=== PATIENT | female | born 1930 | race Caucasian/White ===

== ENCOUNTER 2018-03-20 10:20 | Inpatient (IN) | payer MEDICARE, BC ==
[2018-03-20 14:58] VITALS: BMI 34.9
--- NOTE | 2018-03-20 17:37 | P.HPIM ---
History of Present Illness H&P Date: 03/20/18 Chief Complaint: Thoracic aortic aneurysm 87-year-old female patient who was admitted to [facility] with diagnosis of acute exacerbation CHF and acute exacerbation COPD; patient was treated with IV diuretic therapy along with IV Solu-Medrol and bronchodilator nebulizer treatments; echocardiogram was done which showed an ejection fraction of 35-40% ; despite therapy patient remained tachycardic with a heart rate of 120s and hypoxemic; CT of the chest was done to rule out PE; CAT scan came back negative for PE but did show thoracic aortic aneurysm of 6 cm; patient is transferred to our facility for vascular surgery evaluation and also pulmonary and cardiology consult for further recommendations Past Medical History Past Medical History: Coronary Artery Disease (CAD), COPD, Hypertension Additional Past Medical History / Comment(s): CHF Smoking Status: Former smoker Medications and Allergies Home Medications Medication Instructions Recorded Confirmed Type Aspirin EC [Ecotrin Low Dose] 81 mg PO DAILY 03/20/18 03/20/18 History Digoxin [Lanoxin] 125 mcg PO DAILY 03/20/18 03/20/18 History Diltiazem Cd [Cardizem Cd] 120 mg PO DAILY 03/20/18 03/20/18 History Docusate [Colace] 100 mg PO DAILY 03/20/18 03/20/18 History Ferrous Sulfate [Feosol] 325 mg PO DAILY 03/20/18 03/20/18 History Furosemide [Lasix] 40 mg PO DAILY 03/20/18 03/20/18 History Metoprolol Tartrate [Lopressor] 50 mg PO DAILY 03/20/18 03/20/18 History Multivitamins, Thera [Multivitamin 1 tab PO DAILY 03/20/18 03/20/18 History (formulary)] Naproxen [Naprosyn] 500 mg PO Q12HR 03/20/18 03/20/18 History Potassium Chloride ER [K-Dur 10] 10 meq PO DAILY 03/20/18 03/20/18 History Allergies Allergy/AdvReac Type Severity Reaction Status Date / Time Penicillins Allergy Unknown Verified 03/20/18 14:04 Sulfa (Sulfonamide Allergy Unknown Verified 03/20/18 14:04 Antibiotics) Physical Exam Vitals: Intake and Output 03/20/18 03/20/18 03/20/18 06:59 14:59 22:59 Output Total 200 Balance -200 Output: Urine 200 Other: # Voids 1 1 Weight 86.6 kg - Constitutional In no acute distress; does speak in short sentences due to shortness of breath General appearance: obese - EENT Eyes: EOMI, PERRLA ENT: hard of hearing, no pharyngeal erythema - Neck Neck: no lymphadenopathy, normal ROM, no thyromegaly Carotids: bilateral: bruit absent - Respiratory Respiratory: bilateral: diminished, rhonchi, wheezing - Cardiovascular Rhythm: regular Heart sounds: normal: S1, S2 - Gastrointestinal General gastrointestinal: normal bowel sounds, no tenderness - Integumentary Integumentary: no cellulitis, no flushed, no rash - Neurologic Neurologic: CNII-XII intact - Musculoskeletal Musculoskeletal: generalized weakness, strength equal bilaterally - Psychiatric Psychiatric: A&O x's 3, appropriate affect, intact judgment & insight Assessment and Plan Assessment: 1. Acute exacerbation systolic CHF - We will admit patient to cardiac telemetry - Continue with IV Lasix 40 mg every 12 hours - We will monitor strict NATHALY's, daily weights, renal function and electrolytes - Patient had an echocardiogram done at the outside facility showing an ejection fraction of 35-40% - Consult cardiology for further evaluation and recommendations for patient and family request 2. Acute exacerbation COPD - IV Solu-Medrol 40 mg every 8 hours - DuoNeb nebulizer treatments 4 times a day; doxycycline 100 mg twice a day - Pulmonary consult for further recommendations per family request 3. Thoracic aortic aneurysm - 6 cm per report given from ER physician - We will consult vascular surgery for further recommendations 4. Dyspnea/hypoxemia; possibly multifactorial; PE has been ruled out 5. Hypertension; continue home dose of Cardizem 120 mg daily along with Lopressor 50 mg daily 6. Obesity; counseling done on weight reduction and lifestyle modification 7. DVT prophylaxis; subcu heparin CODE STATUS; full code Time with Patient: Greater than 30
[2018-03-20 18:25] LABS: Basophils % (A) 0 %; Eosinophils % (A) 1 %; HCT 38.9 % (34.0-46.0); HGB 11.4 gm/dL (11.4-16.0); Hypochromasia Moderate; Lymphocytes # (A) 0.4 k/uL (1.0-4.8); Lymphocytes % (A) 11 %; MCHC 29.4 g/dL (31.0-37.0); MCV 91.9 fL (80.0-100.0); Mean Platelet Volume 6.7; Monocytes # (A) 0.1 k/uL (0-1.0); Monocytes % (A) 4 %; Neutrophils # (A) 3.2 k/uL (1.3-7.7); Neutrophils % (A) 83 %; Platelet Count 170 k/uL (150-450); RBC 4.23 m/uL (3.80-5.40); RDW 14.4 % (11.5-15.5); WBC 3.6 k/uL (3.8-10.6)
[2018-03-20 18:28] LABS: Albumin 3.4 g/dL (3.5-5.0); Total Bilirubin 0.7 mg/dL (0.2-1.3); Total Protein 6.9 g/dL (6.3-8.2)
--- NOTE | 2018-03-20 18:33 | XR ---
EXAMINATION TYPE: XR chest 2V DATE OF EXAM: 03/20/2018 COMPARISON: None HISTORY: Shortness of breath, cough and congestion TECHNIQUE: Frontal and lateral views of the chest are obtained. FINDINGS: There is diffuse osseous demineralization. There is a partial intrathoracic stomach apprec iated. Enlarged cardiac mediastinal silhouette is seen, partially atrophy compatible to rotation. Min imal pulmonary vascular congestion is noted. IMPRESSION: 1. Partial intrathoracic stomach. 2. Mild pulmonary vascular congestion and enlarged cardiomediastinal silhouette. Mild congestive hear t failure should be considered.
[2018-03-20 18:37] LABS: Potassium 5.2 mmol/L (3.5-5.1)
[2018-03-20] MEDS: methylPREDNISolone SOD SUCCI 40 MG/ML 1 ML VIAL IV SCH ×2 (18:44→23:12)
[2018-03-20] MEDS: DOXYCYCLINE 100 MG CAP PO SCH (19:30)
[2018-03-20] MEDS: NAPROXEN 250 MG TAB PO SCH (19:30)
[2018-03-20] MEDS: IPRATROPIUM-ALBUTEROL 3 ML NEB INHALATION SCH (21:40)
[2018-03-21 06:28] LABS: Glucose,Whole Blood 131 mg/dL (75-99)
[2018-03-21] MEDS: IPRATROPIUM-ALBUTEROL 3 ML NEB INHALATION SCH ×4 (09:00→21:09)
--- NOTE | 2018-03-21 09:00 | CONS ---
CONSULTATION This patient has been admitted to [facility]. The patient was transferred from [facility]. She has history of congestive heart failure and acute exacerbation of the COPD. The patient under care of medicine. The patient had a CT scan for PE and found to have a thoracic aortic aneurysm 6 cm. The patient also has some hiatal hernia by x- ray. Patient has been transferred for further care. MEDICAL HISTORY: History of coronary artery disease, COPD, hypertension. PERSONAL HISTORY: Patient is a former smoker. PHYSICAL EXAMINATION: NECK: Supple. No bruit appreciated. Chest a few crackles at the lung bases. ABDOMEN: Soft, nontender. Femoral pulses are present. IMPRESSION: 1. Acute exacerbation of systolic congestive heart failure. 2. Thoracic aortic aneurysm, stable. No evidence of leak. 3. Hypertension. PLAN: At this point, patient has been admitted with medical issues. We will do the outpatient workup and discussed with the patient. Follow with you. Thank you very much for the consultation. JAN / ALEJANDRON: [id number] /
[2018-03-21] MEDS: FERROUS SULFATE 325 MG TAB PO SCH (10:09)
[2018-03-21] MEDS: POTASSIUM CHLORIDE ER 10 MEQ TAB.ER.PRT PO SCH (10:09)
[2018-03-21] MEDS: METOPROLOL TARTRATE 50 MG TAB PO SCH (10:09)
[2018-03-21] MEDS: methylPREDNISolone SOD SUCCI 40 MG/ML 1 ML VIAL IV SCH ×3 (10:10→23:07)
[2018-03-21] MEDS: MULTIVITAMINS, THERA 1 EACH TAB PO SCH (10:10)
[2018-03-21] MEDS: FUROSEMIDE 40 MG TAB PO SCH (10:10)
[2018-03-21] MEDS: DILTIAZEM CD 120 MG CAP.ER.24H PO SCH (10:10)
[2018-03-21] MEDS: DOCUSATE 100 MG CAP PO SCH (10:10)
[2018-03-21] MEDS: DIGOXIN 125 MCG TAB PO SCH (10:10)
[2018-03-21] MEDS: DOXYCYCLINE 100 MG CAP PO SCH ×2 (10:10→20:04)
[2018-03-21] MEDS: NAPROXEN 250 MG TAB PO SCH ×2 (10:10→20:04)
[2018-03-21 12:01] LABS: Glucose,Whole Blood 114 mg/dL (75-99)
[2018-03-21] MEDS: BENZOCAINE/MENTHOL LOZENG 1 EACH LOZENGE MUCOUS MEM PRN (12:15)
--- NOTE | 2018-03-21 12:36 | P.CRDCN ---
History of Present Illness Consult date: 03/21/18 Requesting physician: Valdislav Mccain Reason for Consult (text): Acute exacerbation CHF Chief complaint: shortness of breath, edema History of present illness: This is a pleasant 87-year-old gentleman patient who follows with Dr. Cruz. She is somewhat of a poor historian and most of the HPI, past medical history and review of systems was obtained either from the chart or from the patient's son who is at the bedside. She has a history of COPD, hypertension, she's a former smoker and history of atrial fibrillation for which she is on aspirin 81 mg. Initially presented to [facility] because of worsening lower extremity edema and shortness of breath. She was initiated on IV Lasix and Solu -Medrol. She remained tachycardic and hypoxic with continued shortness of breath. She underwent CT of the chest to rule out PE which showed no evidence of PE but did show a 6.2 cm thoracic aortic aneurysm. She was subsequently transferred here to [facility] for vascular surgery evaluation as well as further evaluation and treatment by both pulmonary and cardiology. She is currently maintaining sinus rhythm with PVCs and PACs. Laboratory values upon presentation here showed a white blood cell count 3600, potassium 5.2, CO2 42, BUN 32, creatinine 0.91. NT proBNP from 03/18/18 was 491 which is only mildly elevated. H&P dictated by primary mentions an echocardiogram was done which revealed an ejection fraction of 35-40%. The report of this is not available to me at this time. Overall, patient is feeling a bit better. She feels she is breathing better and her edema has significantly improved. Past Medical History Past Medical History: Coronary Artery Disease (CAD), COPD, Hypertension Additional Past Medical History / Comment(s): CHF History of Any Multi-Drug Resistant Organisms: None Reported Past Surgical History: No Surgical Hx Reported Past Anesthesia/Blood Transfusion Reactions: No Reported Reaction Smoking Status: Former smoker Medications and Allergies Home Medications Medication Instructions Recorded Confirmed Type Aspirin EC [Ecotrin Low Dose] 81 mg PO DAILY 03/20/18 03/20/18 History Digoxin [Lanoxin] 125 mcg PO DAILY 03/20/18 03/20/18 History Diltiazem Cd [Cardizem Cd] 120 mg PO DAILY 03/20/18 03/20/18 History Docusate [Colace] 100 mg PO DAILY 03/20/18 03/20/18 History Ferrous Sulfate [Feosol] 325 mg PO DAILY 03/20/18 03/20/18 History Furosemide [Lasix] 40 mg PO DAILY 03/20/18 03/20/18 History Metoprolol Tartrate [Lopressor] 50 mg PO DAILY 03/20/18 03/20/18 History Multivitamins, Thera [Multivitamin 1 tab PO DAILY 03/20/18 03/20/18 History (formulary)] Naproxen [Naprosyn] 500 mg PO Q12HR 03/20/18 03/20/18 History Potassium Chloride ER [K-Dur 10] 10 meq PO DAILY 03/20/18 03/20/18 History Allergies Allergy/AdvReac Type Severity Reaction Status Date / Time Penicillins Allergy Unknown Verified 03/20/18 14:04 Sulfa (Sulfonamide Allergy Unknown Verified 03/20/18 14:04 Antibiotics) Physical Exam Vitals: Vital Signs Temp Pulse Pulse Pulse Resp BP Pulse Ox 03/21/18 09:00 76 03/21/18 04:00 97.4 F L 73 21 132/71 93 L 03/21/18 00:00 97.7 F 73 17 108/68 98 03/20/18 21:39 97 03/20/18 20:00 97.4 F L 81 19 111/66 94 L 03/20/18 16:00 98.7 F 83 83 16 138/64 97 Intake and Output 03/20/18 03/21/18 03/21/18 22:59 06:59 14:59 Intake Total 840 480 480 Output Total 500 500 Balance 340 -20 480 Intake: Oral 840 480 480 Output: Urine 500 500 Other: Voiding Method Toilet Toilet # Voids 1 2 Weight 86.4 kg PHYSICAL EXAMINATION: HEENT: Head is atraumatic, normocephalic. Pupils equal, round. Neck is supple. There is no elevated jugular venous pressure. HEART EXAMINATION: Heart sounds irregular, S1 and S2 with a systolic murmur. CHEST EXAMINATION: Lungs diminished air entry bilaterally with faint crackles to bilateral bases. No chest wall tenderness is noted on palpation or with deep breathing. ABDOMEN: Soft, obese, nontender. Bowel sounds are heard. No organomegaly noted. EXTREMITIES: 2+ peripheral pulses with no evidence of peripheral edema and no calf tenderness noted. NEUROLOGIC patient is awake, alert and oriented x2. . Results 03/20/18 17:39 03/20/18 17:39 Cardiac Enzymes 03/20/18 Range/Units 17:39 AST 40 H (14-36) U/L CBC 03/20/18 Range/Units 17:39 WBC 3.6 L (3.8-10.6) k/uL RBC 4.23 (3.80-5.40) m/uL Hgb 11.4 (11.4-16.0) gm/dL Hct 38.9 (34.0-46.0) % Plt Count 170 (150-450) k/uL Comprehensive Metabolic Panel 03/20/18 Range/Units 17:39 Sodium 141 (137-145) mmol/L Potassium 5.2 H (3.5-5.1) mmol/L Chloride 94 L (98-107) mmol/L Carbon Dioxide 42 H* (22-30) mmol/L BUN 32 H (7-17) mg/dL Creatinine 0.91 (0.52-1.04) mg/dL Glucose 172 H (74-99) mg/dL Calcium 9.0 (8.4-10.2) mg/dL AST 40 H (14-36) U/L ALT 26 (9-52) U/L Alkaline Phosphatase 41 (38-126) U/L Total Protein 6.9 (6.3-8.2) g/dL Albumin 3.4 L (3.5-5.0) g/dL Current Medications Generic Name Dose Route Start Last Admin Trade Name Freq PRN Reason Stop Dose Admin Albuterol/Ipratropium 3 ml 03/20/18 20:00 03/21/18 09:00 Duoneb 0.5 Mg-3 Mg/3 Ml Soln INHALATION 3 ml RT-QID KENNA Administration Digoxin 125 mcg 03/21/18 09:00 Lanoxin PO DAILY [facility] Diltiazem HCl 120 mg 03/21/18 09:00 Cardizem Cd PO DAILY [facility] Docusate Sodium 100 mg 03/21/18 09:00 Colace PO DAILY [facility] Doxycycline Monohydrate 100 mg 03/20/18 21:00 03/20/18 19:30 Vibramycin PO 100 mg BID KENNA Administration Ferrous Sulfate 325 mg 03/21/18 09:00 Feosol PO DAILY KENNA Furosemide 40 mg 03/21/18 09:00 Lasix PO DAILY KENNA Methylprednisolone Sodium Succinate 40 mg 03/20/18 17:30 03/20/18 23:12 Solu-Medrol IV 40 mg Q8HR KENNA Administration Metoprolol Tartrate 50 mg 03/21/18 09:00 Lopressor PO DAILY KENNA Multivitamins 1 each 03/21/18 12:00 Theragran PO 1200 KENNA Naproxen 500 mg 03/20/18 21:00 03/20/18 19:30 Naprosyn PO 500 mg Q12HR KENNA Administration Potassium Chloride 10 meq 03/21/18 09:00 K-Dur 10 PO DAILY KENNA Intake and Output 03/20/18 03/21/18 03/21/18 22:59 06:59 14:59 Intake Total 840 480 480 Output Total 500 500 Balance 340 -20 480 Intake: Oral 840 480 480 Output: Urine 500 500 Other: Voiding Method Toilet Toilet # Voids 1 2 Weight 86.4 kg 03/20/18 17:39 03/20/18 17:39 Assessment and Plan Assessment: #1 acute on chronic systolic congestive heart failure, improving #2 6.2 cm thoracic aortic aneurysm #3 acute exacerbation COPD #4 hypertension #5 history of A. fib, currently maintaining sinus rhythm Plan: From Cardiology's perspective, we will obtain 2-D echo results from [facility]. We will change metoprolol tartrate to BID. Further recommendations to follow. TRANSITIONAL CARE LIAISON note has been reviewed, I agree with a documented findings and plan of care. Patient was seen and examined.
--- NOTE | 2018-03-21 12:49 | P.PN ---
Subjective Progress Note Date: 03/21/18 Principal diagnosis: Acute exacerbation systolic CHF Acute exacerbation COPD Thoracic aortic aneurysm 6.2 cm 87-year-old female patient transferred to our facility from [facility] patient was admitted for acute exacerbation CHF and COPD; CT chest was done to rule out PE which showed thoracic aortic aneurysm 6.2 cm; patient is transferred to our facility for higher level of care Objective - Vital Signs Vital signs: Vital Signs Temp 98.2 F 03/21/18 12:00 Pulse 92 03/21/18 12:00 Resp 18 03/21/18 12:00 BP 115/68 03/21/18 12:00 Pulse Ox 92 L 03/21/18 12:00 Intake & Output 03/20/18 03/21/18 03/21/18 18:59 06:59 18:59 Intake Total 360 960 480 Output Total 200 800 Balance 160 160 480 Weight 86.6 kg 86.4 kg Intake: Oral 360 960 480 Output: Urine 200 800 Other: Voiding Method Toilet Toilet # Voids 1 2 - Exam HEENT: Head is atraumatic, normocephalic. Pupils equal, round. Neck is supple. There is no elevated jugular venous pressure. HEART EXAMINATION: Heart sounds irregular, S1 and S2 with a systolic murmur. CHEST EXAMINATION: Lungs diminished air entry bilaterally with faint crackles to bilateral bases. No chest wall tenderness is noted on palpation or with deep breathing. ABDOMEN: Soft, obese, nontender. Bowel sounds are heard. No organomegaly noted. EXTREMITIES: 2+ peripheral pulses with no evidence of peripheral edema and no calf tenderness noted. - Labs CBC & Chem 7: 03/20/18 17:39 03/20/18 17:39 Labs: Abnormal Lab Results - Last 24 Hours (Table) 03/20/18 03/20/18 03/21/18 Range/Units 17:39 17:39 05:59 WBC 3.6 L (3.8-10.6) k/uL MCHC 29.4 L (31.0-37.0) g/dL Lymphocytes # 0.4 L (1.0-4.8) k/uL Potassium 5.2 H (3.5-5.1) mmol/L Chloride 94 L (98-107) mmol/L Carbon Dioxide 42 H* (22-30) mmol/L BUN 32 H (7-17) mg/dL Glucose 172 H (74-99) mg/dL POC Glucose (mg/dL) 131 H (75-99) mg/dL AST 40 H (14-36) U/L Albumin 3.4 L (3.5-5.0) g/dL 03/21/18 Range/Units 11:34 WBC (3.8-10.6) k/uL MCHC (31.0-37.0) g/dL Lymphocytes # (1.0-4.8) k/uL Potassium (3.5-5.1) mmol/L Chloride (98-107) mmol/L Carbon Dioxide (22-30) mmol/L BUN (7-17) mg/dL Glucose (74-99) mg/dL POC Glucose (mg/dL) 114 H (75-99) mg/dL AST (14-36) U/L Albumin (3.5-5.0) g/dL Assessment and Plan Assessment: 1. Acute exacerbation systolic CHF - Cardiology recommendations are noted and appreciated - Patient will continue with current dose of IV Lasix; we will monitor strict NATHALY's, daily weights, renal function and electrolytes - Patient had an echocardiogram done at the outside facility showing an ejection fraction of 35-40%; cardiology is requested echocardiogram report from [facility] 2. Acute exacerbation COPD; pulmonary consultation and recommendations are pending - IV Solu-Medrol 40 mg every 8 hours - DuoNeb nebulizer treatments 4 times a day; doxycycline 100 mg twice a day - Pulmonary consult for further recommendations per family request 3. Thoracic aortic aneurysm; vascular surgery has evaluated patient; aneurysm appears stable with no evidence of leak; vascular surgery is recommending outpatient workup and treatment at this point - 6 cm per report given from ER physician - We will consult vascular surgery for further recommendations 4. Dyspnea/hypoxemia; possibly multifactorial; PE has been ruled out 5. Hypertension; continue home dose of Cardizem 120 mg daily along with Lopressor 50 mg daily 6. Obesity; counseling done on weight reduction and lifestyle modification 7. DVT prophylaxis; subcu heparin CODE STATUS; full code
[2018-03-21] MEDS: INSULIN ASPART (NovoLOG) 100 UNIT/ML VIAL SQ SCH ×3 (14:50→21:05)
--- NOTE | 2018-03-21 16:27 | P.CNPUL ---
History of Present Illness Consult date: 03/21/18 History of present illness: A morbidly obese 87-year-old female patient with known history of COPD and congestion heart failure. She is a former smoker. She is also known to have chronic atrial fibrillation. The patient initially presented to [facility] because of worsening dyspnea cough chest congestion and increased lower extremity edema. She was started on treatment and she was started on IV Lasix and bronchodilators and systemic steroids. She continued to be short of breath. CAT scan of the chest was done and it showed no evidence of any pulmonary embolism. There was a 6.2 cm thoracic aortic aneurysm identified which was an incidental finding and vascular surgery consultation was obtained. The patient is currently being seen for pulmonary consultation in the echocardiogram was done showing an ejection fraction of 35-40%. Her chest x- ray was repeated and shows COPD and thoracic kyphosis and widened mediastinum. No fever. No chills. No night sweats. No pleurisy. No hemoptysis. No leukocytosis. Review of Systems Constitutional: Denies chills, Denies fever Eyes: denies as per HPI, denies blurred vision, denies bulging eye, denies decreased vision, denies diplopia, denies discharge, denies dry eye, denies irritation, denies itching, denies pain, denies photophobia, denies loss of peripheral vision, denies loss of vision, denies tunnel vision/blind spots Ears: bilateral: decreased hearing, deny: ear discharge, earache, tinnitus Ears, nose, mouth and throat: Denies headache, Denies sore throat Cardiovascular: Reports decreased exercise tolerance, Reports dyspnea on exertion, Reports leg edema, Reports shortness of breath Respiratory: Reports cough, Reports dyspnea, Reports wheezing Gastrointestinal: Denies abdominal pain, Denies diarrhea, Denies nausea, Denies vomiting Genitourinary: Reports as per HPI Menstruation: Reports as per HPI Musculoskeletal: Reports as per HPI Musculoskeletal: bilateral: ankle swelling, absent: ankle pain, ankle stiffness Integumentary: Reports as per HPI Neurological: Reports as per HPI Psychiatric: Reports as per HPI Endocrine: Reports as per HPI Hematologic/Lymphatic: Reports as per HPI Past Medical History Past Medical History: Coronary Artery Disease (CAD), COPD, Hypertension Additional Past Medical History / Comment(s): CHF History of Any Multi-Drug Resistant Organisms: None Reported Past Surgical History: No Surgical Hx Reported Past Anesthesia/Blood Transfusion Reactions: No Reported Reaction Smoking Status: Former smoker Medications and Allergies Home Medications Medication Instructions Recorded Confirmed Type Aspirin EC [Ecotrin Low Dose] 81 mg PO DAILY 03/20/18 03/20/18 History Digoxin [Lanoxin] 125 mcg PO DAILY 03/20/18 03/20/18 History Diltiazem Cd [Cardizem Cd] 120 mg PO DAILY 03/20/18 03/20/18 History Docusate [Colace] 100 mg PO DAILY 03/20/18 03/20/18 History Ferrous Sulfate [Feosol] 325 mg PO DAILY 03/20/18 03/20/18 History Furosemide [Lasix] 40 mg PO DAILY 03/20/18 03/20/18 History Metoprolol Tartrate [Lopressor] 50 mg PO DAILY 03/20/18 03/20/18 History Multivitamins, Thera [Multivitamin 1 tab PO DAILY 03/20/18 03/20/18 History (formulary)] Naproxen [Naprosyn] 500 mg PO Q12HR 03/20/18 03/20/18 History Potassium Chloride ER [K-Dur 10] 10 meq PO DAILY 03/20/18 03/20/18 History Allergies Allergy/AdvReac Type Severity Reaction Status Date / Time Penicillins Allergy Unknown Verified 03/20/18 14:04 Sulfa (Sulfonamide Allergy Unknown Verified 03/20/18 14:04 Antibiotics) Physical Exam Vitals: Vital Signs Temp Pulse Pulse Pulse Resp BP Pulse Ox 03/21/18 12:57 72 03/21/18 12:41 72 03/21/18 12:00 98.2 F 92 18 115/68 92 L 03/21/18 09:14 80 03/21/18 09:00 76 03/21/18 08:00 98.7 F 92 73 18 114/68 92 L 03/21/18 04:00 97.4 F L 73 21 132/71 93 L 03/21/18 00:00 97.7 F 73 17 108/68 98 03/20/18 21:39 97 03/20/18 20:00 97.4 F L 81 19 111/66 94 L Intake and Output 03/21/18 03/21/18 03/21/18 06:59 14:59 22:59 Intake Total 480 840 Output Total 500 Balance -20 840 Intake: Oral 480 840 Output: Urine 500 Other: Voiding Method Toilet Toilet # Voids 2 3 Weight 86.4 kg PHYSICAL EXAMINATION: Gen. appearance, comfortable not in acute distress she is a morbidly obese female patient HEENT: Head is atraumatic, normocephalic. Pupils equal, round. Neck is supple. There is elevated jugular venous pressure. HEART EXAMINATION: Heart sounds irregular, S1 and S2 with a systolic murmur. CHEST EXAMINATION: Lungs diminished air entry bilaterally with faint crackles to bilateral bases. There is prolongation of expiratory phase of breathing and scattered expiratory wheezes throughout lung feeds bilaterally. There thoracic cage is also somewhat kyphotic ABDOMEN: Soft, obese, nontender. Bowel sounds are heard. No organomegaly noted. EXTREMITIES: 2+ peripheral pulses with trace peripheral edema and no calf tenderness noted. NEUROLOGIC patient is awake, alert and oriented x2. Examination of the skin revealed no evidence of significant rashes, suspicious appearing nevi or other concerning lesions. Results - Laboratory Findings CBC and BMP: 03/20/18 17:39 03/20/18 17:39 Abnormal lab findings: Abnormal Labs 03/20/18 03/20/18 03/21/18 17:39 17:39 05:59 WBC 3.6 L MCHC 29.4 L Lymphocytes # 0.4 L Potassium 5.2 H Chloride 94 L Carbon Dioxide 42 H* BUN 32 H Glucose 172 H POC Glucose (mg/dL) 131 H AST 40 H Albumin 3.4 L 03/21/18 11:34 WBC MCHC Lymphocytes # Potassium Chloride Carbon Dioxide BUN Glucose POC Glucose (mg/dL) 114 H AST Albumin - Diagnostic Findings Chest x-ray: image reviewed Assessment and Plan Plan: Assessment 1 acute COPD exacerbation/tracheobronchitis 2 CHF with impaired left ventricular ejection fraction of 35% 3 shortness of breath secondary to above. Predominant secondary COPD exacerbation with a mild component of CHF in addition 4 chronic hypoxic respiratory failure 5 chronic hypercapnic respiratory failure which seems to be compensated and the patient underlying metabolic alkalosis 6 obesity 7 thoracic aortic aneurysm 8 chronic atrial fibrillation 9 hypertension Plan We will review the CAT scan of the chest findings regarding the thoracic aortic aneurysm. We'll consult vascular surgery. Continue optimization of CHF and COPD. The patient will be placed on a combination of bronchodilators and systemic steroids. The patient is also on oral Lasix. We'll consult cardiology. We'll continue to follow.
[2018-03-21 17:26] LABS: Glucose,Whole Blood 180 mg/dL (75-99)
[2018-03-21 20:52] LABS: Glucose,Whole Blood 121 mg/dL (75-99)
[2018-03-22 06:18] LABS: Glucose,Whole Blood 147 mg/dL (75-99)
[2018-03-22] MEDS: INSULIN ASPART (NovoLOG) 100 UNIT/ML VIAL SQ SCH ×4 (06:30→20:52)
[2018-03-22 06:34] LABS: Basophils % (A) 0 %; Eosinophils % (A) 0 %; HCT 40.3 % (34.0-46.0); HGB 12.1 gm/dL (11.4-16.0); Hypochromasia Moderate; Lymphocytes # (A) 0.5 k/uL (1.0-4.8); Lymphocytes % (A) 4 %; MCH 27.6 pg (25.0-35.0); MCV 92.1 fL (80.0-100.0); Mean Platelet Volume 7.2; Monocytes # (A) 0.3 k/uL (0-1.0); Monocytes % (A) 3 %; Neutrophils # (A) 11.7 k/uL (1.3-7.7); Neutrophils % (A) 93 %; Platelet Count 221 k/uL (150-450); RBC 4.37 m/uL (3.80-5.40); RDW 14.4 % (11.5-15.5); WBC 12.6 k/uL (3.8-10.6)
[2018-03-22 06:51] LABS: Calcium 9.6 mg/dL (8.4-10.2); Potassium 4.9 mmol/L (3.5-5.1)
[2018-03-22] MEDS: IPRATROPIUM-ALBUTEROL 3 ML NEB INHALATION SCH ×4 (07:51→19:53)
[2018-03-22] MEDS: methylPREDNISolone SOD SUCCI 40 MG/ML 1 ML VIAL IV SCH ×2 (09:09→17:40)
[2018-03-22] MEDS: DOCUSATE 100 MG CAP PO SCH (09:09)
[2018-03-22] MEDS: FERROUS SULFATE 325 MG TAB PO SCH (09:10)
[2018-03-22] MEDS: POTASSIUM CHLORIDE ER 10 MEQ TAB.ER.PRT PO SCH (09:10)
[2018-03-22] MEDS: NAPROXEN 250 MG TAB PO SCH ×2 (09:10→20:51)
[2018-03-22] MEDS: DIGOXIN 125 MCG TAB PO SCH (09:10)
[2018-03-22] MEDS: DOXYCYCLINE 100 MG CAP PO SCH ×2 (09:10→20:51)
[2018-03-22] MEDS: FUROSEMIDE 40 MG TAB PO SCH ×2 (09:10→17:40)
[2018-03-22] MEDS: METOPROLOL TARTRATE 50 MG TAB PO SCH (09:10)
[2018-03-22] MEDS: DILTIAZEM CD 120 MG CAP.ER.24H PO SCH (09:10)
[2018-03-22] MEDS: BENZOCAINE/MENTHOL LOZENG 1 EACH LOZENGE MUCOUS MEM PRN (11:00)
[2018-03-22 11:26] LABS: Glucose,Whole Blood 106 mg/dL (75-99)
[2018-03-22] MEDS: MULTIVITAMINS, THERA 1 EACH TAB PO SCH (12:26)
--- NOTE | 2018-03-22 13:54 | P.PN ---
Subjective Progress Note Date: 03/22/18 Principal diagnosis: Acute COPD exacerbation, tracheobronchitis, acute congestive heart failure with systolic dysfunction A morbidly obese 87-year-old female patient with known history of COPD and congestion heart failure. She is a former smoker. She is also known to have chronic atrial fibrillation. The patient initially presented to [facility] because of worsening dyspnea cough chest congestion and increased lower extremity edema. She was started on treatment and she was started on IV Lasix and bronchodilators and systemic steroids. She continued to be short of breath. CAT scan of the chest was done and it showed no evidence of any pulmonary embolism. There was a 6.2 cm thoracic aortic aneurysm identified which was an incidental finding and vascular surgery consultation was obtained. The patient is currently being seen for pulmonary consultation in the echocardiogram was done showing an ejection fraction of 35-40%. Her chest x- ray was repeated and shows COPD and thoracic kyphosis and widened mediastinum. No fever. No chills. No night sweats. No pleurisy. No hemoptysis. No leukocytosis. On 03/22/2018 patient seen in follow-up on selective care unit, she is awake and alert, in no acute distress, sitting up in the recliner, currently on 4 L per nasal cannula, and her pulse ox is 92%, patient normally wears 2 L of oxygen at home. Lung sounds are quite congested, diffuse rhonchi throughout the lung bliss, patient is bringing up some white colored sputum at times. She remains on empiric antibiotics in the form of doxycycline, she is on oral Lasix, and steroids. No fever or chills. No complaints of chest pain. Initial chest x-ray taken on admission with mild pulmonary vascular congestion, consistent with congestive heart failure. Today's labs have been reviewed, white blood cell count is 12.6, hemoglobin is 12.1, sodium is 144, potassium is 4.9, chloride is 94, CO2 is 44, B1 is 38 and creatinine 0.9. Patient is been ambulating in the room, and tolerating activity fairly well. She is requesting to go home. However she still quite congested and wheezy. Objective - Vital Signs Vital signs: Vital Signs Temp 97.7 F 03/22/18 08:00 Pulse 74 03/22/18 12:45 Resp 18 03/22/18 04:00 BP 114/63 03/22/18 08:00 Pulse Ox 92 L 03/22/18 08:00 Intake & Output 03/21/18 03/22/18 03/22/18 18:59 06:59 18:59 Intake Total 840 480 Output Total 200 Balance 840 -200 480 Weight 86.8 kg Intake: Oral 840 480 Output: Urine 200 Other: Voiding Method Toilet Toilet # Voids 3 1 - Exam GENERAL EXAM: Alert, active, comfortable in no apparent distress. HEAD: Normocephalic/atraumatic. EYES: Normal reaction of pupils, equal size. Conjunctiva pink, sclera white. NOSE: Clear with pink turbinates. THROAT: No erythema or exudates. NECK: No masses, no JVD, no thyroid enlargement, no adenopathy. CHEST: No chest wall deformity. Symmetrical expansion. LUNGS: Equal air entry with diffuse rhonchi, and end expiratory wheezes CVS: Regular rate and rhythm, normal S1 and S2, no gallops, no murmurs, no rubs ABDOMEN: Soft, nontender. No hepatosplenomegaly, normal bowel sounds, no guarding or rigidity. EXTREMITIES: No clubbing, no edema, no cyanosis, 2+ pulses and upper and lower extremities. MUSCULOSKELETAL: Muscle strength and tone normal. SPINE: No scoliosis or deformity SKIN: No rashes CENTRAL NERVOUS SYSTEM: Alert and oriented -3. No focal deficits, tone is normal in all 4 extremities. PSYCHIATRIC: Alert and oriented -3. Appropriate affect. Intact judgment and insight. - Labs CBC & Chem 7: 03/22/18 05:51 03/22/18 05:51 Labs: Abnormal Lab Results - Last 24 Hours (Table) 03/21/18 03/21/18 03/22/18 Range/Units 16:14 20:50 05:51 WBC 12.6 H (3.8-10.6) k/uL MCHC 30.0 L (31.0-37.0) g/dL Neutrophils # 11.7 H (1.3-7.7) k/uL Lymphocytes # 0.5 L (1.0-4.8) k/uL Chloride (98-107) mmol/L Carbon Dioxide (22-30) mmol/L BUN (7-17) mg/dL Glucose (74-99) mg/dL POC Glucose (mg/dL) 180 H 121 H (75-99) mg/dL 03/22/18 03/22/18 03/22/18 Range/Units 05:51 06:10 11:25 WBC (3.8-10.6) k/uL MCHC (31.0-37.0) g/dL Neutrophils # (1.3-7.7) k/uL Lymphocytes # (1.0-4.8) k/uL Chloride 94 L (98-107) mmol/L Carbon Dioxide 44 H* (22-30) mmol/L BUN 38 H (7-17) mg/dL Glucose 134 H (74-99) mg/dL POC Glucose (mg/dL) 147 H 106 H (75-99) mg/dL Assessment and Plan Plan: 1 acute COPD exacerbation/tracheobronchitis 2 CHF with impaired left ventricular ejection fraction of 35% 3 shortness of breath secondary to above. Predominant secondary COPD exacerbation with a mild component of CHF in addition 4 chronic hypoxic respiratory failure 5 chronic hypercapnic respiratory failure which seems to be compensated and the patient underlying metabolic alkalosis 6 obesity 7 thoracic aortic aneurysm 8 chronic atrial fibrillation 9 hypertension Plan: Continue current treatment, continue IV steroids, oral Lasix, cardiology has been consulted. She is still quite congested on today's exam. Tinea nebulized bronchodilators and oral antibiotics. Increase activity as tolerated. Vascular surgery consultation is pending in regards to the 6.2 cm thoracic aortic aneurysm. We'll continue to follow I performed a history & physical examination of the patient and discussed their management with my nurse practitioner, Kandy Martin. I reviewed the nurse practitioner's note and agree with the documented findings and plan of care. Lung sounds are positive diffuse rhonchi. The findings and the impression was discussed with the patient. I attest to the documentation by the nurse practitioner. Time with Patient: Less than 30
--- NOTE | 2018-03-22 14:58 | P.PN ---
Subjective Progress Note Date: 03/22/18 This is a pleasant 87-year-old gentleman patient who follows with Dr. Cruz. She is somewhat of a poor historian and most of the HPI, past medical history and review of systems was obtained either from the chart or from the patient's son who is at the bedside. She has a history of COPD, hypertension, she's a former smoker and history of atrial fibrillation for which she is on aspirin 81 mg. Initially presented to [facility] because of worsening lower extremity edema and shortness of breath. She was initiated on IV Lasix and Solu -Medrol. She was seen and examined today, overall is feeling well. The patient during a possible transferred to [facility] today. Continues to have productive cough with scattered rhonchi. On by mouth Lasix. Objective - Vital Signs Vital signs: Vital Signs Temp 97.7 F 03/22/18 08:00 Pulse 74 03/22/18 12:45 Resp 18 03/22/18 04:00 BP 114/63 03/22/18 08:00 Pulse Ox 92 L 03/22/18 08:00 Intake & Output 03/21/18 03/22/18 03/22/18 18:59 06:59 18:59 Intake Total 840 480 Output Total 200 Balance 840 -200 480 Weight 86.8 kg 86.8 kg Intake: Oral 840 480 Output: Urine 200 Other: Voiding Method Toilet Toilet # Voids 3 1 - Exam PHYSICAL EXAMINATION: HEENT: Head is atraumatic, normocephalic. Pupils equal, round. Neck is supple. There is no elevated jugular venous pressure. HEART EXAMINATION: Heart sounds irregular, S1 and S2 with a systolic murmur. CHEST EXAMINATION: Lungs diminished air entry bilaterally with faint crackles to bilateral bases. No chest wall tenderness is noted on palpation or with deep breathing. ABDOMEN: Soft, obese, nontender. Bowel sounds are heard. No organomegaly noted. EXTREMITIES: 2+ peripheral pulses with no evidence of peripheral edema and no calf tenderness noted. NEUROLOGIC patient is awake, alert and oriented x2. . - Labs CBC & Chem 7: 03/22/18 05:51 03/22/18 05:51 Labs: Abnormal Lab Results - Last 24 Hours (Table) 03/21/18 03/21/18 03/22/18 Range/Units 16:14 20:50 05:51 WBC 12.6 H (3.8-10.6) k/uL MCHC 30.0 L (31.0-37.0) g/dL Neutrophils # 11.7 H (1.3-7.7) k/uL Lymphocytes # 0.5 L (1.0-4.8) k/uL Chloride (98-107) mmol/L Carbon Dioxide (22-30) mmol/L BUN (7-17) mg/dL Glucose (74-99) mg/dL POC Glucose (mg/dL) 180 H 121 H (75-99) mg/dL 03/22/18 03/22/18 03/22/18 Range/Units 05:51 06:10 11:25 WBC (3.8-10.6) k/uL MCHC (31.0-37.0) g/dL Neutrophils # (1.3-7.7) k/uL Lymphocytes # (1.0-4.8) k/uL Chloride 94 L (98-107) mmol/L Carbon Dioxide 44 H* (22-30) mmol/L BUN 38 H (7-17) mg/dL Glucose 134 H (74-99) mg/dL POC Glucose (mg/dL) 147 H 106 H (75-99) mg/dL Assessment and Plan Plan: Assessment: #1 acute on chronic systolic congestive heart failure, improving #2 6.2 cm thoracic aortic aneurysm #3 acute exacerbation COPD #4 hypertension #5 history of A. fib, currently maintaining sinus rhythm Plan From cardiology's perspective, we'll continue the patient on her current medications. She may be transferred to ECF once cleared by primary. DNP note has been reviewed, I agree with a documented findings and plan of care. Patient was seen and examined.
[2018-03-22 16:48] LABS: Glucose,Whole Blood 142 mg/dL (75-99)
[2018-03-22 20:46] LABS: Glucose,Whole Blood 144 mg/dL (75-99)
[2018-03-23] MEDS: methylPREDNISolone SOD SUCCI 40 MG/ML 1 ML VIAL IV SCH ×2 (00:19→08:40)
[2018-03-23] MEDS: IPRATROPIUM-ALBUTEROL 3 ML NEB INHALATION SCH (07:40)
[2018-03-23 07:59] VITALS: BP 105/64; RESP 20; TEMP 97.6
[2018-03-23 08:03] LABS: Glucose,Whole Blood 114 mg/dL (75-99)
[2018-03-23] MEDS: NAPROXEN 250 MG TAB PO SCH (08:40)
[2018-03-23] MEDS: DOCUSATE 100 MG CAP PO SCH (08:40)
[2018-03-23] MEDS: METOPROLOL TARTRATE 50 MG TAB PO SCH (08:40)
[2018-03-23] MEDS: FERROUS SULFATE 325 MG TAB PO SCH (08:40)
[2018-03-23] MEDS: MULTIVITAMINS, THERA 1 EACH TAB PO SCH (08:41)
[2018-03-23] MEDS: DIGOXIN 125 MCG TAB PO SCH (08:41)
[2018-03-23] MEDS: DOXYCYCLINE 100 MG CAP PO SCH (08:41)
[2018-03-23] MEDS: POTASSIUM CHLORIDE ER 10 MEQ TAB.ER.PRT PO SCH (08:41)
[2018-03-23] MEDS: FUROSEMIDE 40 MG TAB PO SCH (08:42)
[2018-03-23] MEDS: INSULIN ASPART (NovoLOG) 100 UNIT/ML VIAL SQ SCH (08:42)
[2018-03-23] MEDS: DILTIAZEM CD 120 MG CAP.ER.24H PO SCH (09:10)
[2018-03-23 10:12] VITALS: PULSE 99
--- NOTE | 2018-03-23 10:44 | P.PN ---
Subjective Progress Note Date: 03/22/18 Interval history: 87-year-old female patient transferred to our facility from [facility] patient was admitted for acute exacerbation CHF and COPD; CT chest was done to rule out PE which showed thoracic aortic aneurysm 6.2 cm; patient is transferred to our facility for higher level of care. 03/22/2018 echo report from [place] being obtained, currently unavailable; reported as 35-40%. Continues on doxycycline, oral Lasix, steroids Patient states wears 2-3 L at home. Remains congested, with clear sputum production. Denies chest pain, palpitations or increasing shortness of breath. Objective - Vital Signs Vital signs: Vital Signs Temp 97.7 F 03/22/18 08:00 Pulse 80 03/22/18 20:15 Resp 18 03/22/18 04:00 BP 118/58 03/22/18 16:00 Pulse Ox 93 L 03/22/18 16:00 Intake & Output 03/22/18 03/22/18 03/23/18 06:59 18:59 06:59 Intake Total 780 Output Total 200 Balance -200 780 Weight 86.8 kg 86.8 kg Intake: Oral 780 Output: Urine 200 Other: Voiding Method Toilet # Voids 1 - Exam GENERAL: Sitting up in chair, in alert and oriented 3, no acute distress HEENT: Head is atraumatic, normocephalic. Pupils equal, round. Neck is supple. There is no elevated jugular venous pressure. Oral mucosa moist HEART EXAMINATION: Heart sounds irregular, S1 and S2 with a systolic murmur. CHEST EXAMINATION: Lungs congested, diminished with diffuse rhonchi, expiratory wheezing ABDOMEN: Soft, obese, nontender. Bowel sounds are heard. No organomegaly noted. EXTREMITIES: 2+ peripheral pulses with no evidence of peripheral edema and no calf tenderness noted. SKIN: No rashes - Labs CBC & Chem 7: 03/22/18 05:51 03/22/18 05:51 Labs: Abnormal Lab Results - Last 24 Hours (Table) 03/21/18 03/22/18 03/22/18 Range/Units 20:50 05:51 05:51 WBC 12.6 H (3.8-10.6) k/uL MCHC 30.0 L (31.0-37.0) g/dL Neutrophils # 11.7 H (1.3-7.7) k/uL Lymphocytes # 0.5 L (1.0-4.8) k/uL Chloride 94 L (98-107) mmol/L Carbon Dioxide 44 H* (22-30) mmol/L BUN 38 H (7-17) mg/dL Glucose 134 H (74-99) mg/dL POC Glucose (mg/dL) 121 H (75-99) mg/dL 03/22/18 03/22/18 03/22/18 Range/Units 06:10 11:25 16:43 WBC (3.8-10.6) k/uL MCHC (31.0-37.0) g/dL Neutrophils # (1.3-7.7) k/uL Lymphocytes # (1.0-4.8) k/uL Chloride (98-107) mmol/L Carbon Dioxide (22-30) mmol/L BUN (7-17) mg/dL Glucose (74-99) mg/dL POC Glucose (mg/dL) 147 H 106 H 142 H (75-99) mg/dL 03/22/18 Range/Units 20:45 WBC (3.8-10.6) k/uL MCHC (31.0-37.0) g/dL Neutrophils # (1.3-7.7) k/uL Lymphocytes # (1.0-4.8) k/uL Chloride (98-107) mmol/L Carbon Dioxide (22-30) mmol/L BUN (7-17) mg/dL Glucose (74-99) mg/dL POC Glucose (mg/dL) 144 H (75-99) mg/dL Assessment and Plan Assessment: -Acute exacerbation CHF, systolic dysfunction, EF 35-40% -Acute exacerbation COPD -Acute on chronic hypoxic respiratory failure , wears 3-3.5 L nasal cannula O2 at home -PE ruled out -Hypertension -Morbid Obesity, BMI 35.3 -Thoracic aortic aneurysm,6.2cm, further workup outpatient with Dr. Hewitt -Chronic atrial fibrillation Plan: Continue on current medication regime ,monitoring and symptomatic treatment. Maintain nebulized bronchodilators, Vibramycin, Lasix. Discharge planning in progress pending pulmonary clearance. Aggressive pulmonary toileting. Increase ambulation as tolerated. The impression and plan of care has been dictated as directed. : I performed a history and examination of this patient, discussed the same with the dictator. I agree with the dictator's note ,documented as a scribe. Any additional findings or plans will be noted.
[2018-03-24] MEDS ORDERED: METOPROLOL TARTRATE 25 MG TAB PO SCH (09:00)
--- NOTE | 2018-03-25 18:13 | P.DS ---
Providers Date of admission: 03/20/18 13:20 Expected date of discharge: 03/23/18 Attending physician: MD Dr. Martin Arroyo Consults: 03/20/18 16:36 Consult Physician Routine Consulting Provider: Mitchell Hewitt Consult Reason/Comments: Thoracic arotic aneurysm Do you want consulting provider notified?: Yes 03/20/18 17:31 Consult Physician Routine Consulting Provider: Christian Sanders Consult Reason/Comments: Acute exacerbation CHF Do you want consulting provider notified?: Yes 03/20/18 17:32 Consult Physician Routine Consulting Provider: Natty Orozco Consult Reason/Comments: Dyspnea/COPD Do you want consulting provider notified?: Yes Primary care physician: Stated None Hospital Course: Final Diagnoses: -Acute exacerbation CHF, systolic dysfunction, EF 35-40% -Acute exacerbation COPD -Acute on chronic hypoxic respiratory failure , wears 3-3.5 L nasal cannula O2 at home -PE ruled out -Hypertension -Morbid Obesity, BMI 35.3 -Thoracic aortic aneurysm,6.2cm, further workup outpatient with Dr. Hewitt -Chronic atrial fibrillation Hospital course:87-year-old female patient transferred to our facility from [facility] patient was admitted for acute exacerbation CHF and COPD; CT chest was done to rule out PE which showed thoracic aortic aneurysm 6.2 cm; patient is transferred to our facility for higher level of care. Echo report from [place] being obtained, currently unavailable; reported as 35- 40%. Continues on doxycycline, oral Lasix, steroids Patient states wears 2-3 L at home. Remains congested, with clear sputum production. Denies chest pain , palpitations or increasing shortness of breath. Evaluated by vascular surgeon regarding thoracic aortic aneurysm with further workup outpatient recommended. Evaluated by cardiology, medications further adjusted including Cardizem being discontinued. Evaluated by pulmonary. Maintained on nebulized bronchodilators, Lasix, Vibramycin. Significant clinical improvement. Patient' s son is very ill, on hospice and patient requesting discharge home this morning. Cleared by all consults for discharge. Patient is being discharged home in a stable condition with guarded prognosis. - Exam GENERAL: Sitting up in chair, in alert and oriented 3, no acute distress HEART EXAMINATION: Heart sounds irregular, S1 and S2 with a systolic murmur. CHEST EXAMINATION: Lungs congested, diminished with diffuse rhonchi, improving expiratory wheezing ABDOMEN: Soft, obese, nontender. Bowel sounds are heard. No organomegaly noted. The impression and plan of care has been dictated as directed. : I performed a history and examination of this patient, discussed the same with the dictator. I agree with the dictator's note ,documented as a scribe. Any additional findings or plans will be noted. Time taken: 35 minutes Patient Condition at Discharge: Stable Plan - Discharge Summary New Discharge Prescriptions: New Doxycycline [Vibramycin] 100 mg PO BID #10 cap predniSONE 10 mg PO DIRECTED #30 tab Furosemide [Lasix] 40 mg PO BID@0900,1600 #60 tab Ipratropium-Albuterol Nebulize [Duoneb 0.5 mg-3 mg/3 ml Soln] 3 ml INHALATION RT-QID ampul.neb Potassium Chloride ER [K-Dur 10] 10 meq PO DAILY tab.er.prt Metoprolol Tartrate [Lopressor] 75 mg PO DAILY #90 tab Continue Ferrous Sulfate [Iron (65 MG Elemental)] 325 mg PO DAILY Docusate [Colace] 100 mg PO DAILY Digoxin [Lanoxin] 125 mcg PO DAILY Aspirin EC [Ecotrin Low Dose] 81 mg PO DAILY Naproxen [Naprosyn] 500 mg PO Q12HR Multivitamins, Thera [Multivitamin (formulary)] 1 tab PO DAILY Discontinued Metoprolol Tartrate [Lopressor] 50 mg PO DAILY Furosemide [Lasix] 40 mg PO DAILY Diltiazem Cd [Cardizem CD] 120 mg PO DAILY Discharge Medication List Aspirin EC [Ecotrin Low Dose] 81 mg PO DAILY 03/20/18 [History] Digoxin [Lanoxin] 125 mcg PO DAILY 03/20/18 [History] Docusate [Colace] 100 mg PO DAILY 03/20/18 [History] Ferrous Sulfate [Iron (65 MG Elemental)] 325 mg PO DAILY 03/20/18 [History] Multivitamins, Thera [Multivitamin (formulary)] 1 tab PO DAILY 03/20/18 [History ] Naproxen [Naprosyn] 500 mg PO Q12HR 03/20/18 [History] Doxycycline [Vibramycin] 100 mg PO BID #10 cap 03/23/18 [Rx] Furosemide [Lasix] 40 mg PO BID@0900,1600 #60 tab 03/23/18 [Rx] Ipratropium-Albuterol Nebulize [Duoneb 0.5 mg-3 mg/3 ml Soln] 3 ml INHALATION RT -QID ampul.neb 03/23/18 [Rx] Metoprolol Tartrate [Lopressor] 75 mg PO DAILY #90 tab 03/23/18 [Rx] Potassium Chloride ER [K-Dur 10] 10 meq PO DAILY tab.er.prt 03/23/18 [Rx] predniSONE 10 mg PO DIRECTED #30 tab 03/23/18 [Rx] Follow up Appointment(s)/Referral(s): Timur Mensah MD [STAFF PHYSICIAN] - 04/20/18 9:45 am Akhil Burrows MD [REFERRING] - 3 Days Hans Reaves NPC [REFERRING] - 03/26/18 8:30 am Mitchell Hewitt MD [STAFF PHYSICIAN] - 1 Week Samy Pierre MD [STAFF PHYSICIAN] - 04/05/18 4:15 pm Ambulatory/Diagnostic Orders: Complete Blood Count w/diff [LAB.AMB] Time Frame: 3 Days, Location: None Selected Patient Instructions/Handouts: Heart Failure (DC) Activity/Diet/Wound Care/Special Instructions: Maintain 3 L nasal cannula O2 as at home. Nebulizer confirmed, DuoNeb's 4 times a day scheduled and every 2 hours when necessary SOB. Discharge Disposition: HOME SELF-CARE
== END 2018-03-23 10:52 | disposition home or self-care (01) | DRG 190 ==
LOC: 3SCARD 13:20 → 4MS4W 03-22 19:08
PROVIDERS: ADMIT Internal Medicine; ATTEND Internal Medicine
DX: J44.1 Chronic obstructive pulmonary disease with (acute) exacerbation (principal); I50.23 Acute on chronic systolic (congestive) heart failure; E87.3 Alkalosis; J96.12 Chronic respiratory failure with hypercapnia; J96.11 Chronic respiratory failure with hypoxia; E66.01 Morbid (severe) obesity due to excess calories; I11.0 Hypertensive heart disease with heart failure; I48.2 Chronic atrial fibrillation; I71.2 Thoracic aortic aneurysm, without rupture; I25.10 Atherosclerotic heart disease of native coronary artery without angina pectoris; I49.3 Ventricular premature depolarization; K44.9 Diaphragmatic hernia without obstruction or gangrene; M40.204 Unspecified kyphosis, thoracic region; H91.90 Unspecified hearing loss, unspecified ear; Z68.35 Body mass index [BMI] 35.0-35.9, adult; Z79.82 Long term (current) use of aspirin; Z79.899 Other long term (current) drug therapy; Z87.891 Personal history of nicotine dependence; Z99.81 Dependence on supplemental oxygen; Z88.0 Allergy status to penicillin; Z88.2 Allergy status to sulfonamides
CPT/HCPCS: 71046; 80048; 80053; 85025; 94640